=== PATIENT | female | born 1980 | race Caucasian/White ===

== ENCOUNTER 2017-07-18 12:25 | Emergency (ER) | payer MEDICARE, OTHER ==
[2017-07-18 12:43] VITALS: RESP 18
--- NOTE | 2017-07-18 13:12 | ED ---
Lower Extremity Injury HPI - General Chief Complaint: Extremity Injury, Lower Stated Complaint: Foot injury Time Seen by Provider: 07/18/17 12:53 Source: patient, family, RN notes reviewed Mode of arrival: wheelchair Limitations: no limitations - History of Present Illness Initial Comments: This is a 36-year-old female presents emergency Department chief complaint right foot injury. Patient states that she was on her wheelchair which is motorized states that she [place] the mall yesterday and ran into a bench. She states her foot bent back she complains of mid foot pain. No ankle pain denies any other injuries. She Put any weight on her right foot now secondary to pain she states she is normally able to family at times with a cane but is currently now on the wheelchair bound. Patient offers no other injuries. - Related Data Allergies Allergy/AdvReac Type Severity Reaction Status Date / Time No Known Allergies Allergy Verified 07/18/17 12:43 Review of Systems ROS Statement: Those systems with pertinent positive or pertinent negative responses have been documented in the HPI. ROS Other: All systems not noted in ROS Statement are negative. Past Medical History Past Medical History: Seizure Disorder Additional Past Medical History / Comment(s): seizures years ago, has cerebral palsy-left sided weakness, scoliosis History of Any Multi-Drug Resistant Organisms: None Reported Past Surgical History: Appendectomy, Tubal Ligation Additional Past Surgical History / Comment(s): heel cord sug. Past Anesthesia/Blood Transfusion Reactions: No Reported Reaction Past Psychological History: Depression Smoking Status: Never smoker Past Alcohol Use History: Rare Past Drug Use History: None Reported General Exam Limitations: no limitations General appearance: alert, in no apparent distress Head exam: Present: atraumatic, normocephalic, normal inspection Respiratory exam: Present: normal lung sounds bilaterally. Absent: respiratory distress, wheezes, rales, rhonchi, stridor Cardiovascular Exam: Present: regular rate, normal rhythm, normal heart sounds. Absent: systolic murmur, diastolic murmur, rubs, gallop, clicks Extremities exam: Present: other (Right foot there is tenderness the mid foot, no obvious deformity mild swelling neurovascular intact there is no tenderness ankle) Course Vital Signs 07/18/17 12:39 Temperature 97.7 F Pulse Rate 91 Respiratory 18 Rate Blood Pressure 134/80 O2 Sat by Pulse 100 Oximetry Procedures - Orthopedic Splinting/Casting Injury #1 Side: right Lower Extremity Injury Location: short leg, foot Lower Extremity Immobilizer: posterior splint, synthetic pre-padded splint Other Orthopedic Equipment: other (Patient in wheelchair) Medical Decision Making - Medical Decision Making 36-year-old female presents from for right foot injury. Patient has fracture noted on x-ray she'll be splinted and follow up with orthopedics. Return parameters were discussed. Disposition Clinical Impression: Foot fracture, right Disposition: HOME SELF-CARE Condition: Stable Instructions: Foot Fracture in Adults (ED) Additional Instructions: Please return to the Emergency Department if symptoms worsen or any other concerns. Is patient prescribed a controlled substance at d/c from ED?: No Referrals: Young Brown MD [Primary Care Provider] - 1-2 days Bobby Kline MD [Medical Doctor] - 1-2 days Time of Disposition: 14:15
--- NOTE | 2017-07-18 13:34 | XR ---
EXAMINATION TYPE: XR foot limited RT , 2 VIEWS DATE OF EXAM ORDERED: 07/18/2017 HISTORY: Pain. COMPARISON: None. FINDINGS: Nonstandard views abdomen submitted. There is overlap of the first and second digits. Ther e is fibular deviation of the third digit. There are hammertoe deformities of the second through fift h digits. There is a questionable minimally displaced fracture of the superior aspect of the tarsal n avicular. No other definite fractures are seen. IMPRESSION: I CANNOT EXCLUDE MINIMALLY DISPLACED FRACTURE OF THE TARSAL NAVICULAR SUPERIORLY. PLEASE CORRELATE CL INICALLY. CODE A: INITIAL ENCOUNTER FOR CLOSED FRACTURE.
[2017-07-18] MEDS ORDERED: IBUPROFEN 600 MG TAB PO STA (14:21)
[2017-07-18 14:24] VITALS: BP 127/68; PULSE 82; TEMP 97.6
== END 2017-07-18 14:31 | disposition home or self-care (01) ==
LOC: EC 12:25
DX: S92.251A Displaced fracture of navicular [scaphoid] of right foot, initial encounter for closed fracture (principal); W22.8XXA Striking against or struck by other objects, initial encounter; Y93.9 Activity, unspecified; Y92.59 Other trade areas as the place of occurrence of the external cause; Z99.3 Dependence on wheelchair
CPT/HCPCS: 29515; 99283